=== PATIENT | female | born 1955 | race Caucasian/White ===

== ENCOUNTER 2018-01-17 20:20 | Inpatient (IN) | payer MEDICAID ==
[2018-01-17] MEDS ORDERED: MORPHINE SULFATE 4 MG/ML SYRINGE IV PRN (22:44)
[2018-01-17] MEDS ORDERED: ALPRAZolam 0.25 MG TAB PO PRN (22:44)
[2018-01-17] MEDS ORDERED: TEMAZEPAM 15 MG CAP PO PRN (22:44)
[2018-01-17] MEDS ORDERED: NALOXONE 0.4 MG/ML 1 ML VIAL IV PRN (22:44)
[2018-01-17] MEDS ORDERED: ALBUTEROL NEBULIZED 2.5 MG/3 ML INHALATION PRN (22:49)
[2018-01-17] MEDS ORDERED: FLUTICASONE 50MCG/SPRAY NASAL 16GM EA NOSTRIL PRN (22:49)
[2018-01-17] MEDS ORDERED: NITROGLYCERIN SL TABS 0.4 MG TAB SUBLINGUAL PRN (22:49)
[2018-01-17] MEDS ORDERED: ATORVASTATIN 40 MG TAB PO SCH (23:00)
[2018-01-17] MEDS ORDERED: HEPARIN SODIUM,PORCINE 5,000 UNIT/ML 1 ML VIAL IV PRN (23:00)
[2018-01-17] MEDS ORDERED: ATORVASTATIN 80 MG TAB PO SCH (23:00)
[2018-01-17] MEDS ORDERED: HEPARIN SODIUM,PORCINE/D5W PMX 25,000 UNIT in DEXTROSE/WATER 1 500ML.BAG IV SCH (23:00)
[2018-01-17 23:36] LABS: Basophils # (A) 0.1 k/uL (0-0.2); Basophils % (A) 1 %; Eosinophils # (A) 0.6 k/uL (0-0.7); Eosinophils % (A) 6 %; HCT 38.2 % (34.0-46.0); HGB 12.8 gm/dL (11.4-16.0); Lymphocytes % (A) 41 %; MCH 32.6 pg (25.0-35.0); MCHC 33.4 g/dL (31.0-37.0); MCV 97.8 fL (80.0-100.0); Mean Platelet Volume 7.7; Monocytes # (A) 0.6 k/uL (0-1.0); Monocytes % (A) 6 %; Neutrophils # (A) 4.4 k/uL (1.3-7.7); Neutrophils % (A) 45 %; Platelet Count 236 k/uL (150-450); RBC 3.91 m/uL (3.80-5.40); RDW 13.4 % (11.5-15.5); WBC 9.8 k/uL (3.8-10.6)
[2018-01-17 23:45] LABS: Partial Thromboplastin Time 43.1 sec (22.0-30.0); Prothrombin Time 10.2 sec (9.0-12.0)
[2018-01-17 23:48] LABS: ALT 29 U/L (9-52); AST 23 U/L (14-36); Alkaline Phosphatase 73 U/L (38-126); Amylase 67 U/L (30-110); Anion Gap 11 mmol/L; Blood Urea Nitrogen 18 mg/dL (7-17); Calcium 9.5 mg/dL (8.4-10.2); Carbon Dioxide 25 mmol/L (22-30); Chloride 107 mmol/L (98-107); Glucose 107 mg/dL (74-99); Lipase 206 U/L (23-300); Potassium 3.7 mmol/L (3.5-5.1); Sodium 143 mmol/L (137-145); Total Bilirubin 0.4 mg/dL (0.2-1.3); Total Protein 6.2 g/dL (6.3-8.2)
[2018-01-18] MEDS: NICOTINE 14MG/24HR PATCH TRANSDERM SCH ×2 (01:11→09:01)
[2018-01-18] MEDS: SODIUM CHLORIDE 0.9% 1,000 ML IV SCH ×2 (01:11→17:33)
[2018-01-18] MEDS: NITROGLYCERIN OINT 1 INCH/GM PACKET TOPICAL SCH ×2 (01:11→09:01)
[2018-01-18] MEDS: PANTOPRAZOLE 40 MG/10 ML VIAL IV SCH ×2 (01:12→09:00)
[2018-01-18] MEDS ORDERED: ACETAMINOPHEN TAB 325 MG TAB PO PRN (01:18)
[2018-01-18] MEDS: METOPROLOL TARTRATE 50 MG TAB PO SCH ×3 (01:19→21:41)
[2018-01-18 03:15] VITALS: BMI 25.4
--- NOTE | 2018-01-18 05:20 | HP ---
HISTORY AND PHYSICAL DATE OF SERVICE: 01/17/2018 CHIEF COMPLAINTS: Epigastric and chest pain. HISTORY OF PRESENT ILLNESS: This 59-year-old woman with a past medical history of myocardial infarction, history of DJD, history of bronchitis, adenoidectomy, being followed by in the outpatient setting was complaining of epigastric pain for the last several days. Subsequently patient had chest pain and pain radiating to the back and patient presented to [facility] in [place] and the patient started on IV heparin drip and nitroglycerin drip and the patient was transferred to [facility] as a direct admission at this time. In 2014 patient had acute [address] ST elevation myocardial infarction and patient had cardiac catheterization and stenting of the LAD with reduction of stenosis 80% to 0%. Patient also had epigastric discomfort during that time and hypodense areas in the pancreas on the ultrasound with normal CT scan was also noted. There is no history of any fever, rigors. No history of headache, loss of consciousness or seizures. PAST MEDICAL HISTORY: Myocardial infarction, CAD, stent. COPD, DJD, history of adenoidectomy, back surgery. MEDICATIONS: Prior to admission include home medications are: 1. Flonase nasal spray b.i.d. p.r.n. 2. Albuterol 1-2 puffs q.6h p.r.n. 3. Aspirin 320 mg daily. 4. Nitro 0.7 mg sublingual p.r.n. 5. Lopressor 50 mg b.i.d. 6. Zestril 5 mg. 7. Lipitor 40 mg. ALLERGIES: None. FAMILY HISTORY: History of coronary artery disease and bypass and AICD in the family. SOCIAL HISTORY: Occasional alcohol intake. Previous history of smoking. REVIEW OF SYSTEMS: ENT: No diminished vision, no diminished hearing. Cardiovascular as mentioned earlier. Respiratory: No cough or hemoptysis. GI as mentioned earlier. no dysuria. Nervous system: No numbness, weakness. Allergy/Immunology: No asthma or hayfever. Musculoskeletal as mentioned earlier. Hematology: No history of anemia. Endocrine: No history of diabetes, hypothyroidism. Constitutional: As mentioned earlier. Dermatology: Negative. Rheumatology: Negative. Psychiatry: As mentioned earlier. PHYSICAL EXAM: Patient is alert, oriented x3. Pulse is 80, blood pressure 120/90 respiratory rate 20, temp is normal. HEENT: Conjunctivae normal. Oral mucosa moist. Neck is no jugular venous distention. No carotid bruit. No lymph node enlargement. No thyroid enlargement. Cardiovascular system: S1, S2 muffled. Breath sounds diminished in the bases. No rhonchi. No crackles. ABDOMEN: Soft. Mild discomfort in the epigastrium. No guarding. No rigidity. No mass palpable. Legs: No edema. No swelling. Nervous system: Higher functions as mentioned earlier. Moves all four limbs. No focal deficits. Lymphatics: No lymph nodes palpable in the neck, axillae or groin. SKIN: No ulcer, rash, or bleeding. Joints no active deforming arthropathy. LABS: Awaited. ASSESSMENT: 1. Chest pain and back pain, possible unstable angina. 2. History of coronary artery disease and cardiac cath LAD stenting. 3. History of hyperlipidemia. 4. Chronic obstructive pulmonary disease. 5. History of nicotine dependence. 6. Degenerative joint disease. 7. History of bronchitis. 8. History of back surgery. 10.History of family history of coronary artery disease. RECOMMENDATIONS AND DISCUSSION: In this 62-year-old woman who presented with multiple complex medical issues, we will monitor the patient closely. Continue the current medications, management and symptomatic treatment. Will initiate unstable angina protocol, acute coronary syndrome protocol. Cardiology consultation. Rule out myocardial infarction. Resume the home medications. Otherwise symptomatic treatment also will be provided. Prognosis guarded because of multiple complex medical issues. Smoking cessation advice has been given. Discussed with the patient, understands and agrees. A copy of dictation being forwarded to Dr. Belia Griffin who is the primary physician. MMRICKL / TROYN: [id number] / MTDD
[2018-01-18 06:29] LABS: Basophils # (A) 0.1 k/uL (0-0.2); Basophils % (A) 1 %; Eosinophils # (A) 0.6 k/uL (0-0.7); Eosinophils % (A) 7 %; HCT 38.3 % (34.0-46.0); HGB 13.3 gm/dL (11.4-16.0); Lymphocytes # (A) 3.4 k/uL (1.0-4.8); Lymphocytes % (A) 37 %; MCHC 34.7 g/dL (31.0-37.0); MCV 95.2 fL (80.0-100.0); Mean Platelet Volume 7.3; Monocytes # (A) 0.6 k/uL (0-1.0); Monocytes % (A) 6 %; Neutrophils # (A) 4.4 k/uL (1.3-7.7); Neutrophils % (A) 47 %; Platelet Count 234 k/uL (150-450); RBC 4.02 m/uL (3.80-5.40); RDW 13.4 % (11.5-15.5); WBC 9.2 k/uL (3.8-10.6)
[2018-01-18 06:39] LABS: Anion Gap 11 mmol/L; Blood Urea Nitrogen 18 mg/dL (7-17); Calcium 9.3 mg/dL (8.4-10.2); Carbon Dioxide 23 mmol/L (22-30); Chloride 109 mmol/L (98-107); Cholesterol 143 mg/dL (<200); Glucose 88 mg/dL (74-99); HDL Cholesterol 75 mg/dL (40-60); LDL Cholesterol,Calculated 53 mg/dL (0-99); Potassium 3.9 mmol/L (3.5-5.1); Sodium 143 mmol/L (137-145); Triglycerides 77 mg/dL (<150)
[2018-01-18] MEDS ORDERED: ASPIRIN 325 MG TAB PO SCH (09:00)
[2018-01-18] MEDS ORDERED: NITROGLYCERIN-D5W PMX 50 MG in DEXTROSE/WATER 1 250ML.BAG IV SCH (09:45)
--- NOTE | 2018-01-18 09:48 | P.CRDCN ---
History of Present Illness Consult date: 01/18/18 Requesting physician: Jordy Ocasio Consult reason: chest pain Chief complaint: Chest pain History of present illness: This is a 62-year-old female with known history of coronary artery disease with prior LAD stent, she also has history of hypertension, hyperlipidemia, daily alcohol use of at least 3 beers a day, and nicotine dependence. Stent was performed in 2014, she follows with Dr. Cordova in the office. Patient was transferred here from [facility], she presented there with some's of midepigastric discomfort radiating through to her back. Initial EKG on arrival here shows a normal sinus rhythm with ST-T wave changes noted in the inferior and anterior leads. Laboratory data performed at [facility] was reviewed, the BNP was 219, troponin 0.017. White blood cell count 11.8, hemoglobin 13.1, platelet count 231. Sodium 141, potassium 3.6, BUN 19, creatinine 0.8. Magnesium 2.0. Laboratory data here, CBC is normal, sodium 143 , potassium 3.9, BUN 18, creatinine 0.6. Troponin 0.015, 0.020. At the time of my examination this morning, patient is complaining of some midepigastric discomfort, she does state that it reminds her of the symptoms she had at the time of her stenting. EKG was performed which reveals a normal sinus rhythm with ST-T wave changes more pronounced in the inferior leads. Past Medical History Past Medical History: Coronary Artery Disease (CAD), Chest Pain / Angina, COPD, Hyperlipidemia, Hypertension, Osteoarthritis (OA) Additional Past Medical History / Comment(s): bronchitis History of Any Multi-Drug Resistant Organisms: None Reported Past Surgical History: Adenoidectomy, Back Surgery, Heart Catheterization With Stent, Tonsillectomy Additional Past Surgical History / Comment(s): colonocsopy removed 1 polyp- benign,herniated disc sx Past Anesthesia/Blood Transfusion Reactions: Motion Sickness Date of Last Stent Placement:: 2014 Past Psychological History: No Psychological Hx Reported Smoking Status: Current some day smoker Past Alcohol Use History: Occasional Additional Past Alcohol Use History / Comment(s): started smoking at age 18 smoked until age 41, and still occassionally smokes,drinks 5-6 beers per week Past Drug Use History: None Reported - Past Family History Father Family Medical History: Coronary Artery Disease (CAD) Additional Family Medical History / Comment(s): 5 bypass sx pacer/defib Mother Family Medical History: COPD Additional Family Medical History / Comment(s): hs emphysema- 19 yeras ago from pneumonia Medications and Allergies Home Medications Medication Instructions Recorded Confirmed Type Aspirin 325 mg PO DAILY #90 tab 10/11/14 01/18/18 Rx Metoprolol Tartrate [Lopressor] 50 mg PO BID #180 tab 10/11/14 01/18/18 Rx Nitroglycerin Sl Tabs [Nitrostat] 0.4 mg SUBLINGUAL Q5M PRN #25 tab 10/11/14 Rx Albuterol Inhaler [Ventolin Hfa 1 - 2 puff INHALATION RT-Q4H PRN 01/17/18 History Inhaler] Fluticasone Nasal [place] [Flonase 1 spray EA NOSTRIL BID PRN 01/17/18 01/18/18 History Nasal [place]] Lisinopril [Zestril] 10 mg PO DAILY 01/17/18 01/18/18 History Atorvastatin Calcium [Lipitor] 40 mg PO HS 01/18/18 01/18/18 History Allergies Allergy/AdvReac Type Severity Reaction Status Date / Time No Known Allergies Allergy Verified 01/18/18 08:11 Physical Exam Vitals: Vital Signs Temp Pulse Resp BP Pulse Ox 01/18/18 09:03 97.8 F 67 16 132/68 99 01/18/18 06:25 98.5 F 65 18 128/62 96 01/18/18 02:15 98.1 F 59 L 17 135/58 97 01/17/18 21:50 98.4 F 65 18 119/64 96 Intake and Output 01/17/18 01/18/18 01/18/18 22:59 06:59 14:59 Intake Total 845.786 0 Balance 845.786 0 Intake: Intake, IV Titration 605.786 Amount Heparin Sodium,Porcine/ 205.786 D5w Pmx 25,000 unit In Dextrose/Water 1 500ml. bag @ 12 UNITS/KG/HR 16. 17 mls/hr IV .Q24H [facility] Rx #:[id number] Sodium Chloride 0.9% 1, 400 000 ml @ 50 mls/hr IV . Q20H [facility] Rx#:[id number] Oral 240 0 Other: Voiding Method Toilet Toilet # Voids 3 Weight 67.4 kg 67.4 kg PHYSICAL EXAMINATION: HEENT: Head is atraumatic, normocephalic. Pupils equal, round. Neck is supple. There is no elevated jugular venous pressure. HEART EXAMINATION: Heart S1 and S2 systolic ejection murmur is heard. CHEST EXAMINATION: Lungs are clear to auscultation and precussion. No chest wall tenderness is noted on palpation or with deep breathing. ABDOMEN: Soft, nontender. Bowel sounds are heard. No organomegaly noted. EXTREMITIES: 2+ peripheral pulses with no evidence of peripheral edema and no calf tenderness noted. NEUROLOGIC patient is awake, alert and oriented -3. . Results 01/18/18 06:06 01/18/18 06:06 Cardiac Enzymes 01/17/18 01/17/18 01/18/18 Range/Units 23:02 23:02 06:06 AST 23 (14-36) U/L Troponin I 0.015 0.020 (0.000-0.034) ng/mL Coagulation 01/17/18 01/18/18 Range/Units 23:02 06:06 PT 10.2 (9.0-12.0) sec APTT 43.1 H 40.2 H (22.0-30.0) sec Lipids 01/18/18 Range/Units 06:06 Triglycerides 77 (<150) mg/dL Cholesterol 143 (<200) mg/dL HDL Cholesterol 75 H (40-60) mg/dL CBC 01/17/18 01/18/18 Range/Units 23:02 06:06 WBC 9.8 9.2 (3.8-10.6) k/uL RBC 3.91 4.02 (3.80-5.40) m/uL Hgb 12.8 13.3 (11.4-16.0) gm/dL Hct 38.2 38.3 (34.0-46.0) % Plt Count 236 234 (150-450) k/uL Comprehensive Metabolic Panel 01/17/18 01/18/18 Range/Units 23:02 06:06 Sodium 143 143 (137-145) mmol/L Potassium 3.7 3.9 (3.5-5.1) mmol/L Chloride 107 109 H (98-107) mmol/L Carbon Dioxide 25 23 (22-30) mmol/L BUN 18 H 18 H (7-17) mg/dL Creatinine 0.80 0.62 (0.52-1.04) mg/dL Glucose 107 H 88 (74-99) mg/dL Calcium 9.5 9.3 (8.4-10.2) mg/dL AST 23 (14-36) U/L ALT 29 (9-52) U/L Alkaline Phosphatase 73 (38-126) U/L Total Protein 6.2 L (6.3-8.2) g/dL Albumin 4.0 (3.5-5.0) g/dL Current Medications Generic Name Dose Route Start Last Admin Trade Name Freq PRN Reason Stop Dose Admin Acetaminophen 650 mg 01/18/18 01:18 01/18/18 01:26 Tylenol Tab PO 650 mg Q6HR PRN Administration Fever and/ or Pain Hydrocodone Bitart/Acetaminophen 1 each 01/17/18 22:44 [place] 5-325 PO Q4HR PRN Moderate Pain Albuterol Sulfate 2.5 mg 01/17/18 22:49 Ventolin Nebulized INHALATION RT-Q4H PRN Shortness Of Breath Or Wheezing Alprazolam 0.25 mg 01/17/18 22:44 Xanax PO Q6HR PRN Anxiety Aspirin 325 mg 01/18/18 09:00 Aspirin PO DAILY [facility] Atorvastatin Calcium 40 mg 01/17/18 23:00 Lipitor PO HS TETE Fluticasone Propionate 1 spray 01/17/18 22:49 01/18/18 01:12 Flonase Nasal [place] EA NOSTRIL 1 spray BID PRN Administration Allergy Symptoms Heparin Sodium (Porcine) 5,000 unit 01/17/18 23:00 Heparin IV PER PROTOCOL PRN Low PTT Protocol Heparin Sodium/Dextrose 25,000 500 mls @ 16.17 mls/hr 01/17/18 23:00 06:59 unit/ IV Solution IV 15 units/kg/hr .Q24H TETE 20.22 mls/hr Protocol Titration 12 UNITS/KG/HR Sodium Chloride 1,000 mls @ 50 mls/hr 01/17/18 22:45 01/18/18 01:11 Saline 0.9% IV 50 mls/hr .Q20H TETE Administration Lisinopril 5 mg 01/18/18 09:00 Zestril PO DAILY [facility] Metoprolol Tartrate 50 mg 01/17/18 23:00 01/18/18 01:19 Lopressor PO Not Given BID [facility] Morphine Sulfate 4 mg 01/17/18 22:44 Morphine Sulfate (Inj) IV Q4HR PRN Severe Pain Naloxone HCl 0.2 mg 01/17/18 22:44 Narcan IV Q2M PRN Opioid Reversal Nicotine 1 patch 01/17/18 23:30 01/18/18 09:01 Habitrol 14mg/24hr Patch TRANSDERM 1 patch DAILY [facility] Administration Nitroglycerin 0.5 inch 01/18/18 00:00 01/18/18 09:01 Nitro-Bid Oint TOPICAL 0.5 inch Q8HR [facility] Administration Nitroglycerin 0.4 mg 01/17/18 22:49 Nitrostat SUBLINGUAL Q5M PRN Chest Pain Pantoprazole Sodium 40 mg 01/17/18 23:30 01/18/18 09:00 Protonix IV 40 mg DAILY [facility] Administration Temazepam 15 mg 01/17/18 22:44 Restoril PO HS PRN Insomnia Intake and Output 01/17/18 01/18/18 01/18/18 22:59 06:59 14:59 Intake Total 845.786 0 Balance 845.786 0 Intake: Intake, IV Titration 605.786 Amount Heparin Sodium,Porcine/ 205.786 D5w Pmx 25,000 unit In Dextrose/Water 1 500ml. bag @ 12 UNITS/KG/HR 16. 17 mls/hr IV .Q24H [facility] Rx #:[id number] Sodium Chloride 0.9% 1, 400 000 ml @ 50 mls/hr IV . Q20H [facility] Rx#:[id number] Oral 240 0 Other: Voiding Method Toilet Toilet # Voids 3 Weight 67.4 kg 67.4 kg 01/18/18 06:06 01/18/18 06:06 EKG Interpretations (text) EKG shows normal sinus rhythm with ST-T wave changes noted in the inferior leads and anterior leads. Subsequent EKG shows normal sinus rhythm with poor pronounced changes noted in the inferior leads. Assessment and Plan Plan: Assessment and plan #1 symptoms of epigastric discomfort radiating through to the back, suggestive of acute coronary syndrome. Initial troponin 0.015, subsequent troponin 0.020. EKG shows normal sinus rhythm with ST-T wave changes noted in the inferior and anterior leads. #2 known history of coronary artery disease with prior LAD stent in 2014, patient was found to have proximal PDA stenosis of 70% at that time as well. #3 hyperlipidemia #4 nicotine dependence #5 hypertension #6 nicotine dependence Plan We will obtain an echocardiogram with Doppler study, continue IV heparin. Continue IV nitroglycerin drip, aspirin, Lipitor, lisinopril, and metoprolol. Patient has been advised that she may need to undergo cardiac catheterization, the risks and benefits again were explained to the patient in detail, and she is willing to proceed. DNP note has been reviewed, I agree with a documented findings and plan of care. Patient was seen and examined.
[2018-01-18] MEDS ORDERED: ASPIRIN 325 MG TAB PO STA (09:49)
[2018-01-18] MEDS ORDERED: SODIUM CHLORIDE 0.9% 1,000 ML in EMPTY BAG 1 BAG IV ONE (09:49)
[2018-01-18] MEDS ORDERED: ALPRAZolam 0.25 MG TAB PO PRN (09:49)
[2018-01-18] MEDS ORDERED: ALPRAZolam 0.5 MG TAB PO PRN (09:49)
[2018-01-18] MEDS ORDERED: ATORVASTATIN 80 MG TAB PO STA (09:49)
[2018-01-18] MEDS ORDERED: NITROGLYCERIN SL TABS 0.4 MG TAB SUBLINGUAL PRN (09:49)
[2018-01-18] MEDS ORDERED: LIDOCAINE 2% INJ 20 MG/ML (20 ML MDV) ONE (09:58)
[2018-01-18] MEDS ORDERED: fentaNYL (PF) 50 MCG/ML 2 ML AMP ONE (10:08)
[2018-01-18] MEDS ORDERED: IV FLUID CONTINUATION 1,000 ML IV ONE (10:15)
[2018-01-18] MEDS ORDERED: fentaNYL (PF) 50 MCG/ML 2 ML AMP IV ONE (10:27)
[2018-01-18] MEDS ORDERED: LIDOCAINE 2% INJ 20 MG/ML SQ ONE (10:32)
[2018-01-18] MEDS ORDERED: IOHEXOL 350 MG/ML 125ML BOTTLE INJ ONE (10:52)
[2018-01-18] MEDS ORDERED: IOHEXOL 350 MG/ML 50ML BOTTLE INJ ONE (10:52)
[2018-01-18] MEDS ORDERED: RX INFO: IV CONTRAST WAS GIVEN 1 EACH MISC MISCELLANE PRN (11:00)
[2018-01-18] MEDS ORDERED: SODIUM CHLORIDE 0.9% 1,000 ML IV SCH (11:00)
--- NOTE | 2018-01-18 11:33 | CC ---
CARDIAC CATHETERIZATION REPORT Mrs. Arriaza is a 62-year-old female who transferred medications from [facility] with symptoms of chest discomfort. She had borderline EKG changes. In view of the persistent symptoms and her prior history of coronary disease and stenting of the LAD, recommendation was made regarding cardiac catheterization. The procedure, risks and complications were discussed with the patient who is in full understanding and agreement. PROCEDURE: Patient was brought to the Cardiac Breaker Up in a fasting semi-sedated state after receiving fentanyl and Benadryl and achieving moderate conscious sedated state. Using Xylocaine anesthesia and the Seldinger technique, a 6-Ivorian sheath was introduced in the right femoral artery. Selective right and left angiography performed using 5- [place]vor[place] 4 bend right and left Miranda catheter and multiple views of the right coronary artery including hemiaxial vies obtained. Following that a 6-Ivorian tight pigtail catheter was introduced into the left ventricle and a 30 degree AGUAYO view of the left ventricle was obtained. Following that, catheter and sheaths were removed. Hemostasis was obtained with deployment of an Angio-Seal. There was no immediate complication. Patient was returned to her room in stable condition. FINDINGS: 1. LEFT MAIN: This is a short-sized vessel bifurcating into left circumflex, left anterior descending artery. Left main coronary artery has no evidence of high- grade stenosis. 2. LEFT ANTERIOR DESCENDING ARTERY: This is a large-sized vessel, reaching toward the apex with a wraparound apex segment. The mid segment stented areas is patent. There is 10% plaque proximal to the stent, but the rest of the vessel has no high-grade stenosis. 3. LEFT CIRCUMFLEX: This is a nondominant vessel, giving rise to 2 obtuse marginal branches. The first one is very proximal and large. The left circumflex as well as branches have no evidence of obstructive disease. 4. RIGHT CORONARY ARTERY: This is a large dominant vessel, bifurcating distally into PDA and posterolateral segments and branches. The right PDA has mild intimal disease of 10%. In comparison to 2015, the PDA and PLV had significant plaque that are no longer noted. 5. LEFT VENTRICULOGRAM: Left ventriculogram is performed in 30 degree AGUAYO view and inferior wall hypokinesis to akinesis. Ejection fraction is estimated at 45%-50%. There was no significant mitral regurgitation. HEMODYNAMICS: There was no gradient across the aortic valve. The left ventricular end-diastolic pressure was 16-20 mmHg. CONCLUSION: 1. Mild intimal disease involving the right PDA and the mid left and descending artery with no evidence of restenosis. 2. Mildly impaired left ventricular systolic function. RECOMMENDATION: In view of finding anatomy, I have recommended to continue medical therapy with aggressive risk-factor modifications being initiated. Those findings and recommendation were discussed with the patient and she is in full understanding and agreement. MMRICKL / AURELIA: [id number] /
[2018-01-18] MEDS: LISINOPRIL 5 MG TAB PO SCH (11:37)
[2018-01-18] MEDS: HYDROcodone/APAP 5-325MG 1 EACH TAB PO PRN ×3 (11:40→21:41)
[2018-01-18 12:22] VITALS: RESP 16
[2018-01-18] MEDS: IOPAMIDOL-300 CONTRAST 30 ML VIAL (ORAL USE) PO PRN ×2 (19:50→20:20)
[2018-01-18] MEDS ORDERED: IOPAMIDOL-250 50ML BTL IV STA (20:03)
--- NOTE | 2018-01-18 20:15 | US ---
EXAMINATION TYPE: US gallbladder DATE OF EXAM: 01/18/2018 COMPARISON: Ultrasound 10/10/2014 CLINICAL HISTORY: cholecystitis??. RUQ pain EXAM MEASUREMENTS: Liver Length: 15 cm. Gallbladder Wall: 2 mm CBD: 0.8 cm Right Kidney: 9.0 x 4.2 x 4.7 cm Pancreas: Hypoechoic area at head measuring 8 x 4 mm in axial cross-section, seen on previous exam, likely peripancreatic node. Liver: wnl Gallbladder: Negative for cholelithiasis and negative for cholecystitis. Evidence for sonographic Canas's sign: No CBD: Dilated at 8 mm, similar caliber as seen on the prior ultrasound. Right Kidney: wnl IMPRESSION: NO ACUTE PROCESS; STABLE SONOGRAPHIC FINDINGS.
--- NOTE | 2018-01-18 20:19 | XR ---
EXAMINATION: XR chest 1V portable DATE AND TIME: 01/18/2018 7:03 PM ORDERING PROVIDER: Justin Stoll CLINICAL INDICATION: chest pain TECHNIQUE: AP portable upright COMPARISON: 10/07/2014 DESCRIPTION: The lungs are clear. Prominent emphysematous changes are redemonstrated. The pleural spaces are negative. The cardiac silhouette is not enlarged. The mediastinal and pleural silhouettes are unremarkable. The skeletal structures are intact without focal findings. The soft tissues are unremarkable. IMPRESSION: NO ACUTE PROCESS.
--- NOTE | 2018-01-18 22:18 | CT ---
EXAMINATION TYPE: CT ChestAbdPelvis wo con DATE OF EXAM: 01/18/2018 COMPARISON: October 09, 2014 HISTORY: Epigastric and back pain. CT DLP: 437.2 mGycm. Automated Exposure Control for Dose Reduction was Utilized. TECHNIQUE: CT scan of the thorax, abdomen and pelvis is performed without IV contrast. FINDINGS: There is diffuse pulmonary emphysema. There is no evidence of a pulmonary mass. There is mild linear density at the lung bases consistent with scarring and subsegmental atelectasis. There is no pleural effusion. There is no pericardial effusion. There are a few paratracheal and anterior mediastinal lym ph nodes that measure up to 1.5 cm. There is no evidence of aortic aneurysm. There is no pericardial effusion. There are no hilar masses. Liver shows no focal defect. Bile ducts are not dilated. Gallbladder appears normal. There is no panc reatic mass. There is no evidence of a splenic mass. There is no adrenal mass. There is some vascular contrast in the renal collecting systems. There is no hydronephrosis. There is no retroperitoneal adenopathy. There is no sign of appendicitis. I see no intestinal wall thickening. There are no dilated loops. There is contrast in the urinary bl adder. There is no ascites. Uterus is anteverted. I see no bony destructive process. There is L5 spon dylolysis with minimal first-degree L5-S1 spondylolisthesis. CONCLUSION: Emphysema. Mild atherosclerotic vascular disease. There is contrast in the kidneys apparently from r ecent contrast exam. This is not documented and patient probably had exam elsewhere. No evidence of r enal obstruction. There is some nodular anterior mediastinal and paratracheal adenopathy that is unchanged compared to old exam. No sign of acute abnormality of the chest abdomen and pelvis.
--- NOTE | 2018-01-19 06:03 | PN ---
PROGRESS NOTE DATE OF SERVICE: 01/18/2018 This 62-year-old woman who had a past medical history of multiple medical problems including CAD, stenting had chest pain. Cardiac cath was done by Cardiology today which showed mild intimal disease involving the right PDA with no evidence of stent restenosis. The patient also had a previously abnormal CAT scan, which has been worked up previously. Repeat CAT scan done today showed emphysema, otherwise no other acute abnormalities noted. A gallbladder ultrasound was also done, which showed no acute process. No chest pain. No palpitations. No fever. PHYSICAL EXAMINATION: On exam, alert, and oriented x3. Pulse is 60, blood pressure 122/60, respirations 16, temperature 97.7, pulse ox 94% on room air. HEENT: Conjunctivae normal. NECK: No jugular venous distention. CARDIOVASCULAR: S1 and S2 muffled. RESPIRATORY: Breath sounds diminished in the bases. No rhonchi, no crackles. ABDOMEN: Soft, nontender. LEGS: No edema, no swelling. NERVOUS SYSTEM: No focal deficits. LABS: CBC within normal limits. ASSESSMENT: 1. Chest pain and back pain, possible unstable angina, status post cardiac catheterization. 2. History of coronary artery disease and cardiac cath and left anterior descending artery stenting. 3. History of hyperlipidemia. 4. Chronic obstructive pulmonary disease. 5. History of nicotine dependence. 6. History of degenerative joint disease. 7. History of bronchitis. 8. History of back surgery. 9. Family history of coronary artery disease. RECOMMENDATIONS AND DISCUSSION: Recommend to continue current medication, continue symptomatic treatment. Closely follow with Cardiology. Increase ambulation. Guarded prognosis. Further recommendations to follow. MMODL / IJN: [id number] /
[2018-01-19 06:51] LABS: Basophils # (A) 0.1 k/uL (0-0.2); Basophils % (A) 1 %; Eosinophils # (A) 0.4 k/uL (0-0.7); Eosinophils % (A) 5 %; HCT 40.8 % (34.0-46.0); HGB 13.5 gm/dL (11.4-16.0); Lymphocytes # (A) 3.2 k/uL (1.0-4.8); Lymphocytes % (A) 36 %; MCH 33.1 pg (25.0-35.0); MCHC 33.2 g/dL (31.0-37.0); MCV 99.8 fL (80.0-100.0); Mean Platelet Volume 7.4; Monocytes # (A) 0.5 k/uL (0-1.0); Monocytes % (A) 6 %; Neutrophils # (A) 4.3 k/uL (1.3-7.7); Neutrophils % (A) 49 %; Platelet Count 223 k/uL (150-450); RBC 4.09 m/uL (3.80-5.40); RDW 13.5 % (11.5-15.5); WBC 8.7 k/uL (3.8-10.6)
[2018-01-19 07:03] LABS: Anion Gap 11 mmol/L; Blood Urea Nitrogen 11 mg/dL (7-17); Calcium 9.7 mg/dL (8.4-10.2); Carbon Dioxide 24 mmol/L (22-30); Chloride 109 mmol/L (98-107); Glucose 87 mg/dL (74-99); Potassium 4.2 mmol/L (3.5-5.1); Sodium 144 mmol/L (137-145)
[2018-01-19] MEDS ORDERED: PANTOPRAZOLE 40 MG TABLET PO SCH (07:30)
[2018-01-19] MEDS: LISINOPRIL 5 MG TAB PO SCH (08:26)
[2018-01-19] MEDS: METOPROLOL TARTRATE 50 MG TAB PO SCH (08:26)
[2018-01-19] MEDS: NICOTINE 14MG/24HR PATCH TRANSDERM SCH (08:26)
[2018-01-19 08:43] VITALS: TEMP 97
[2018-01-19] MEDS ORDERED: ASPIRIN 81 MG PO SCH (09:00)
--- NOTE | 2018-01-19 09:47 | ECHOF ---
Referral Reason:chest pain MEASUREMENTS -------- HEIGHT: 162.6 cm WEIGHT: 67.1 kg BP: 132/68 IVSd: 0.9 cm (0.6 - 1.1) LVIDd: 4.7 cm (3.9 - 5.3) LVPWd: 1.2 cm (0.6 - 1.1) IVSs: 1.7 cm LVIDs: 3.6 cm LVPWs: 1.5 cm LAESV Index (A-L): 20.21 ml/m Ao Diam: 3.1 cm (2.0 - 3.7) AV Cusp: 1.7 cm (1.5 - 2.6) LA Diam: 2.5 cm (2.7 - 3.8) MV EXCURSION: 20.954 mm (> 18.000) MV EF SLOPE: 59 mm/s (70 - 150) EPSS: 0.9 cm MV E Sadi: 0.73 m/s MV DecT: 171 ms MV A Sadi: 0.75 m/s MV E/A Ratio: 0.98 RAP: 5.00 mmHg RVSP: 8.46 mmHg FINDINGS -------- Sinus rhythm. This was a technically good study. The left ventricular size is normal. There is borderline concentric left ventricular hypertrophy. Overall left ventricular systolic function is mildly impaired with, an EF between 45 - 50 %. Basal inferior LV wall motion is hypokinetic. Mid inferior LV wall motion is hypokinetic. The right ventricle is normal in size and function. The left atrium is normal in size. The right atrium is normal in size. The aortic valve is trileaflet, and appears structurally normal. No aortic stenosis or regurgitation. The mitral valve is normal. Mild mitral regurgitation is present. Mild tricuspid regurgitation present. The right ventricular systolic pressure, as measured by Doppl er, is 8.46mmHg. There is no pulmonic regurgitation present. The aortic root size is normal. There is no pericardial effusion. CONCLUSIONS -------- 1. Sinus rhythm. 2. This was a technically good study. 3. The left ventricular size is normal. 4. There is borderline concentric left ventricular hypertrophy. 5. Overall left ventricular systolic function is mildly impaired with, an EF between 45 - 50 %. 6. Basal inferior LV wall motion is hypokinetic. 7. Mid inferior LV wall motion is hypokinetic. 8. The left atrium is normal in size. 9. The aortic valve is trileaflet, and appears structurally normal. No aortic stenosis or regurgitati on. 10. Mild mitral regurgitation is present. 11. Mild tricuspid regurgitation present. 12. The right ventricular systolic pressure, as measured by Doppler, is 8.46mmHg. 13. There is no pulmonic regurgitation present. 14. The aortic root size is normal. 15. There is no pericardial effusion. LOG HAUL OPERATOR: Jessica Walton RDCS
[2018-01-19 11:18] VITALS: BP 130/66; PULSE 56
--- NOTE | 2018-01-19 12:18 | P.PN ---
Subjective Progress Note Date: 01/19/18 Principal diagnosis: Epigastric pain This is a 62-year-old female with known history of coronary artery disease with prior LAD stent, she also has history of hypertension, hyperlipidemia, daily alcohol use of at least 3 beers a day, and nicotine dependence. Stent was performed in 2014, she follows with Dr. Cordova in the office. Patient was transferred here from [facility] [place], she presented there with some's of midepigastric discomfort radiating through to her back. Initial EKG on arrival here shows a normal sinus rhythm with ST-T wave changes noted in the inferior and anterior leads. Laboratory data performed at [place] was reviewed, the BNP was 219, troponin 0.017. White blood cell count 11.8, hemoglobin 13.1, platelet count 231. Sodium 141, potassium 3.6, BUN 19, creatinine 0.8. Magnesium 2.0. Laboratory data here, CBC is normal, sodium 143 , potassium 3.9, BUN 18, creatinine 0.6. Troponin 0.015, 0.020. At the time of my examination this morning, patient is complaining of some midepigastric discomfort, she does state that it reminds her of the symptoms she had at the time of her stenting. EKG was performed which reveals a normal sinus rhythm with ST-T wave changes more pronounced in the inferior leads. 01/19/2018 Patient underwent a cardiac catheterization yesterday by Dr. Cordova which revealed mild intimal disease involving the right PDA and the mid LAD with no evidence of restenosis. Mildly impaired left ventricular systolic function. CAT scan of the chest abdomen and pelvis revealed diffuse pulmonary emphysema, no evidence of pulmonary mass, possible atelectasis. No pleural effusion, no pericardial effusion, there are a few paratracheal and anterior mediastinal lymph nodes measuring up to 1.5 cm, no evidence of aortic aneurysm, and no pericardial effusion. Patient is hemodynamically stable. CBC normal, sodium 144, potassium 4.2, BUN 11, creatinine 0.5. Objective - Vital Signs Vital signs: Vital Signs Temp 97 F L 01/19/18 11:15 Pulse 56 L 01/19/18 11:15 Resp 16 01/19/18 11:15 BP 130/66 01/19/18 11:15 Pulse Ox 96 01/19/18 11:15 Intake & Output 01/18/18 01/19/18 01/19/18 18:59 06:59 18:59 Intake Total 555.47 410 Output Total 1 Balance 555.47 409 Weight 67 kg Intake: IV 75.47 Intake, IV Titration 10 Amount Sodium Chloride 0.9% 1, 10 000 ml @ 100 mls/hr IV . Q10H [facility] Rx#:[id number] Oral 480 400 Output: Urine 1 Other: Voiding Method Toilet Toilet Toilet # Voids 2 - Exam PHYSICAL EXAMINATION: HEENT: Head is atraumatic, normocephalic. Pupils equal, round. Neck is supple. There is no elevated jugular venous pressure. HEART EXAMINATION: Heart S1, S2 normal. No murmur or gallop heard. CHEST EXAMINATION: Lungs are clear to auscultation and precussion. No chest wall tenderness is noted on palpation or with deep breathing. ABDOMEN: Soft, nontender. Bowel sounds are heard. No organomegaly noted. Right groin soft, no evidence of any hematoma. EXTREMITIES: 2+ peripheral pulses with no evidence of peripheral edema and no calf tenderness noted. NEUROLOGIC patient is awake, alert and oriented -3. . - Labs CBC & Chem 7: 01/19/18 06:09 01/19/18 06:09 Labs: Abnormal Lab Results - Last 24 Hours (Table) 01/19/18 Range/Units 06:09 Chloride 109 H (98-107) mmol/L Assessment and Plan Plan: Assessment and plan #1 symptoms of epigastric discomfort radiating through to the back, suggestive of acute coronary syndrome. Initial troponin 0.015, subsequent troponin 0.020. EKG shows normal sinus rhythm with ST-T wave changes noted in the inferior and anterior leads. #2 known history of coronary artery disease with prior LAD stent in 2014, patient was found to have proximal PDA stenosis of 70% at that time as well. #3 hyperlipidemia #4 nicotine dependence #5 hypertension #6 nicotine dependence Plan Patient underwent a cardiac catheterization yesterday by Dr. Cordova which revealed mild intimal disease involving the right PDA and mid LAD with no evidence of restenosis. From cardiology's perspective, she may be able to be discharged home today. We will make her a follow-up appointment to see Dr. Cordova in the office post discharge. DNP note has been reviewed, I agree with a documented findings and plan of care. Patient was seen and examined.
--- NOTE | 2018-01-19 12:44 | P.DS ---
Providers Date of admission: 01/17/18 21:41 Attending physician: Jordy Ocasio MD Consults: 01/17/18 22:46 Consult Physician Routine Consulting Provider: Garth Kirkland Consult Reason/Comments: cad Do you want consulting provider notified?: Yes Primary care physician: Belia L [facility] Course: 62-year-old with known history of coronary disease primarily lady came in with epigastric abdominal discomfort patient underwent cardiac catheterization which did not show any stent table atherosclerotic vascular disease there is some mild intimal disease involving the right PDA and mild LAD disease without any evidence of restenosis. Patient is otherwise clinically doing well chest pain- free epigastric abdominal pain free patient had an ultrasound of the gallbladder which did not show any gallstones or cholecystitis. Patient will be discharged on Prilosec for 15 days for possible gastritis if her symptoms doesn't resolve will need evaluation by gastroenterology and upper GI endoscopy. PHYSICAL EXAMINATION: GENERAL: The patient is alert and oriented x3, not in any acute distress. Well developed, well nourished. HEENT: Pupils are round and equally reacting to light. EOMI. No scleral icterus. No conjunctival pallor. Normocephalic, atraumatic. No pharyngeal erythema. No thyromegaly. CARDIOVASCULAR: S1 and S2 present. No murmurs, rubs, or gallops. PULMONARY: Chest is clear to auscultation, no wheezing or crackles. ABDOMEN: Soft, nontender, nondistended, normoactive bowel sounds. No palpable organomegaly. MUSCULOSKELETAL: No joint swelling or deformity. EXTREMITIES: No cyanosis, clubbing, or pedal edema. NEUROLOGICAL: Gross neurological examination did not reveal any focal deficits. SKIN: No rashes. -Epigastric abdominal discomfort: Possibly due to peptic ulcer disease or gastritis -Rule out acute clinic syndromes underwent status post cardiac catheterization -Hyperlipidemia -" Nicotine dependence: Counseling was provided -Hypertension Plan - Discharge Summary Discharge Rx Participant: No New Discharge Prescriptions: New Aspirin 81 mg PO DAILY #30 chew Lisinopril [Zestril] 5 mg PO DAILY #30 tab Nicotine 14Mg/24Hr Patch [Habitrol] 1 patch TRANSDERM DAILY #30 patch Omeprazole [PriLOSEC] 40 mg PO -CLEOPATRAKFST #14 capsule. Continue Metoprolol Tartrate [Lopressor] 50 mg PO BID #180 tab Nitroglycerin Sl Tabs [Nitrostat] 0.4 mg SUBLINGUAL Q5M PRN #25 tab PRN Reason: Chest Pain Atorvastatin Calcium [Lipitor] 40 mg PO HS Discontinued Aspirin 325 mg PO DAILY #90 tab Lisinopril [Zestril] 10 mg PO DAILY No Action Albuterol Inhaler [Ventolin Hfa Inhaler] 1 - 2 puff INHALATION RT-Q4H PRN PRN Reason: Shortness Of Breath Or Wheezing Fluticasone Nasal Hydro [Flonase Nasal Hydro] 1 spray EA NOSTRIL BID PRN PRN Reason: Allergy Symptoms Discharge Medication List Metoprolol Tartrate [Lopressor] 50 mg PO BID #180 tab 10/11/14 [Rx] Nitroglycerin Sl Tabs [Nitrostat] 0.4 mg SUBLINGUAL Q5M PRN #25 tab 10/11/14 [Rx ] Albuterol Inhaler [Ventolin Hfa Inhaler] 1 - 2 puff INHALATION RT-Q4H PRN [History] Fluticasone Nasal Hydro [Flonase Nasal Hydro] 1 spray EA NOSTRIL BID PRN [History] Atorvastatin Calcium [Lipitor] 40 mg PO HS 01/18/18 [History] Aspirin 81 mg PO DAILY #30 chew 01/19/18 [Rx] Lisinopril [Zestril] 5 mg PO DAILY #30 tab 01/19/18 [Rx] Nicotine 14Mg/24Hr Patch [Habitrol] 1 patch TRANSDERM DAILY #30 patch 01/19/18 [ Rx] Omeprazole [PriLOSEC] 40 mg PO AC-CLEOPATRAKFST #14 capsule. 01/19/18 [Rx] Follow up Appointment(s)/Referral(s): Lillie Cordova MD [STAFF PHYSICIAN] - 02/04/18 10:30 am () Belia Griffin NPC [Primary Care Provider] - 01/21/18 1:00 pm Patient Instructions/Handouts: *Surgery [facility] - After Heart Catheterization - Induction Furnace Operator Instructions, Left Heart Catheterization (DC), How to Stop Smoking (DC) Discharge/Stand Alone Forms: Work/Release Restrictions Form Discharge Disposition: HOME SELF-CARE
== END 2018-01-19 13:02 | disposition home or self-care (01) | DRG 287 ==
LOC: 6SEL 21:41
PROVIDERS: ADMIT Internal Medicine; ATTEND Internal Medicine
PROC: 4A023N7 Measurement of Cardiac Sampling and Pressure, Left Heart, Percutaneous Approach (ICD-10-PCS; principal; 2018-01-17)
PROC: B2111ZZ Fluoroscopy of Multiple Coronary Arteries using Low Osmolar Contrast (ICD-10-PCS; 2018-01-17)
DX: I25.110 Atherosclerotic heart disease of native coronary artery with unstable angina pectoris (principal); E78.5 Hyperlipidemia, unspecified; F17.200 Nicotine dependence, unspecified, uncomplicated; K29.70 Gastritis, unspecified, without bleeding; K27.9 Peptic ulcer, site unspecified, unspecified as acute or chronic, without hemorrhage or perforation; I10 Essential (primary) hypertension; M19.90 Unspecified osteoarthritis, unspecified site; Z82.49 Family history of ischemic heart disease and other diseases of the circulatory system; Z95.5 Presence of coronary angioplasty implant and graft; Z76.1 Encounter for health supervision and care of foundling; I25.2 Old myocardial infarction; Z79.899 Other long term (current) drug therapy; Z79.82 Long term (current) use of aspirin; Z90.89 Acquired absence of other organs; Z82.5 Family history of asthma and other chronic lower respiratory diseases
CPT/HCPCS: 71045; 71250; 74176; 76705; 80048; 80053; 80061; 82150; 83690; 83735; 84484; 85025; 85610; 85730; 93306; 93458

== ENCOUNTER → 2021-11-11 | Outpatient (CLI) | payer MEDICARE ==
[2021-11-12 01:05] LABS: African American GFR (CKD) 81.4 (60.0-200.0); Albumin 4.6 g/dL (3.8-4.9); Albumin/Globulin Ratio 2.09 (1.60-3.17); Anion Gap 14.9 mmol/L (10.00-18.00); BUN/Creat Ratio 11.65 Ratio (12.00-20.00); Blood Urea Nitrogen 10.1 mg/dL (9.0-27.0); Calcium 10.1 mg/dL (8.7-10.3); Carbon Dioxide 23.4 mmol/L (20.0-27.5); Globulin 2.2 g/dL (1.6-3.3); Non-African American GFR(CKD) 70.2 (60.0-200.0); Potassium 4.4 mmol/L (3.5-5.5); Total Bilirubin 0.4 mg/dL (0.30-1.20); Total Protein 6.8 g/dL (6.2-8.2)
== END | disposition home or self-care (01) ==
LOC: LABWHC1 14:30
PROVIDERS: ATTEND Internal Medicine Endocrinology, Diabetes & Metabolism
DX: M81.0 Age-related osteoporosis without current pathological fracture (principal)
CPT/HCPCS: 36415; 80053; 82306; 82523; 83970; 84443

== ENCOUNTER 2025-01-05 05:43 | Day surgery (SDC) | payer MEDICARE ==
[2025-01-05] MEDS ORDERED: NITROGLYCERIN SL TABS 0.4 MG TAB SUBLINGUAL PRN (05:54)
[2025-01-05] MEDS ORDERED: ALPRAZolam 0.25 MG TAB PO PRN (05:54)
[2025-01-05] MEDS: IV FLUID CONTINUATION 1,000 ML IV ONE (06:15)
[2025-01-05] MEDS: ALPRAZolam 0.5 MG TAB PO PRN (06:38)
[2025-01-05] MEDS: SODIUM CHLORIDE 0.9% 1,000 ML in EMPTY BAG 1 BAG IV SCH (06:39)
[2025-01-05] MEDS: ASPIRIN 325 MG TAB PO STA (06:43)
[2025-01-05] MEDS: ATORVASTATIN 80 MG TAB PO STA (06:43)
[2025-01-05 06:54] VITALS: RESP 16; TEMP 97.6
[2025-01-05 06:56] LABS: Basophils # (A) 0.07 10*3/uL (0.00-0.10); Basophils % (A) 0.8 %; Eosinophils # (A) 0.31 10*3/uL (0.04-0.35); Eosinophils % (A) 3.7 %; HCT 37.7 % (37.2-46.3); HGB 13.1 g/dL (12.0-15.0); Lymphocytes # (A) 2.96 10*3/uL (0.90-5.00); Lymphocytes % (A) 35.4 %; MCHC 34.7 g/dL (32.0-37.0); MCV 103.6 fL (80.0-97.0); Mean Platelet Volume 10.1 fL (9.5-12.2); Monocytes # (A) 0.83 10*3/uL (0.20-1.00); Monocytes % (A) 9.9 %; Neutrophils # (A) 4.15 10*3/uL (1.80-7.70); Neutrophils % (A) 49.8 %; Platelet Count 166 10*3/uL (140-440); RBC 3.64 10*6/uL (4.10-5.20); RDW 14.5 % (11.5-14.5); WBC 8.35 10*3/uL (4.50-10.00)
[2025-01-05 06:59] LABS: African American GFR (CKD) >90 (>60 ml/min/1.73 sqM); Anion Gap 6 mmol/L; Blood Urea Nitrogen 14 mg/dL (7-17); Calcium 9.8 mg/dL (8.4-10.2); Carbon Dioxide 25 mmol/L (22-30); Chloride 108 mmol/L (98-107); Glucose 111 mg/dL (74-99); Non-African American GFR(CKD) >90 (>60 ml/min/1.73 sqM); Sodium 139 mmol/L (137-145)
[2025-01-05] MEDS ORDERED: HEPARIN SODIUM,PORCINE (1 ML) 2,500 UNIT in SODIUM CHLORIDE 0.9% 250 ML IRRIGATION PRN (07:00)
[2025-01-05] MEDS ORDERED: HEPARIN SODIUM,PORCINE 10,000 UNIT in SODIUM CHLORIDE 0.9% 1,000 ML IRRIGATION PRN (07:00)
[2025-01-05] MEDS: HEPARIN SODIUM,PORCINE (1 ML) 2,500 UNIT in SODIUM CHLORIDE 0.9% 250 ML IRRIGATION ONE (07:33)
[2025-01-05] MEDS: HEPARIN SODIUM (1,000 UNIT/ML) 1,000 UNIT in SODIUM CHLORIDE 0.9% 1,000 ML IRRIGATION ONE (07:33)
[2025-01-05] MEDS: fentaNYL (PF) 50 MCG/ML 2 ML AMP IVP ONE (07:41)
[2025-01-05] MEDS: LIDOCAINE 1% INJ 10MG/ML (20 ML MDV) SQ ONE (07:47)
[2025-01-05] MEDS: VERAPAMIL SYRINGE (5 MG/10 ML) INTRAARTER ONE (07:48)
[2025-01-05] MEDS: HEPARIN SODIUM 1,000 UN/ML (10ML VL) IV ONE (07:51)
[2025-01-05] MEDS: IOPAMIDOL-370 100ML BTL INJ ONE (07:57)
[2025-01-05] MEDS: SODIUM CHLORIDE 0.9% 1,000 ML IV SCH (08:10)
[2025-01-05] MEDS ORDERED: RX INFO: IV CONTRAST WAS GIVEN 1 EACH MISC MISCELLANE PRN (08:13)
--- NOTE | 2025-01-05 08:19 | P.CARDCATH ---
Date of Procedure: 01/05/25 Description of Procedure: Cardiac Catheterization: The patient is a 69-year-old female with known history of coronary disease, hypertension and hyperlipidemia who has been complaining of chest discomfort and had an abnormal MPI. Recommendations were made regarding cardiac catheterization, the risks and the complications were discussed with the patient who is in full understanding and agreement. Procedure Description: Patient was brought to lab scientist in fasting semi-sedated state after receiving Fentanyl and Benadryl achieiving moderate conscious sedated state. Using Xylocaine Anesthesia and modified Seldinger technique, a 6-Malagasy sheath was introduced in the right radial artery . Subsequently, selective coronary angiography was performed using a 5-Malagasy 3.5 bend Miranda catheter. Multiple views of the coronary artery including hemiaxial views were obtained. The right Miranda catheter was used to cross the aortic valve and LVEDP was calculated. Following that, catheter and sheath were removed. Hemostasis was obtained with deployment of vascular band . There was no immediate complication. Patient was returned to room in stable condition. Of note, the patient received a total of 3500 units of intravenous heparin as well as intra-arterial verapamil. Findings: Left main: This is a large size vessel, bifurcating into LAD and left circumflex, left main has no obstructive disease LAD: This is a large size vessel, reaching to the apex, giving rise to 2 diagonal branch of moderate caliber. The stented segment in the mid LAD is patent with no evidence of significant in-stent restenosis. There is a 20 to 30% plaque proximal to the stent. The rest of the vessel has no high-grade st enosis. Left circumflex: This is a nondominant vessel, giving rise to a very proximal large obtuse marginal branch, the second obtuse marginal branch is small in caliber. The left circumflex and its branches have no obstructive disease. RCA: This is a large dominant vessel, bifurcating into PDA and PLV. The mid RCA is mildly ectatic. There is a small second acute marginal branch that is totally occluded with slow filling, the rest of the vessel has no high-grade stenosis Left Ventriculogram: Not performed Hemodynamics: There was no gradient across aortic valve, LVEDP was 14-16 mmHg Conclusion: 1. Patent stent in the mid LAD 2. Occluded second small acute marginal branch 3. Mild disease in the RCA 4. Right dominance Recommendations: I see no evidence of significant obstructive disease, I have recommended to continue medical therapy with the aggressive coronary risks modification has been initiated. The findings and the recommendations were discussed with the patient and the family and they were in full understanding and agreement. Duration of sedation is 15 minutes.
[2025-01-05 12:47] VITALS: PULSE 56
[2025-01-05 12:49] VITALS: BP 137/76
[2025-01-05] MEDS ORDERED: METOPROLOL TARTRATE 50 MG TAB PO SCH (21:00)
[2025-01-05] MEDS ORDERED: ATORVASTATIN 40 MG TAB PO SCH (21:00)
[2025-01-06] MEDS ORDERED: LEVOTHYROXINE 75 MCG TAB PO SCH (06:30)
[2025-01-06] MEDS ORDERED: PANTOPRAZOLE 40 MG TABLET PO SCH (09:00)
[2025-01-06] MEDS ORDERED: EZETIMIBE 10 MG TAB PO SCH (09:00)
[2025-01-06] MEDS ORDERED: lisinopriL 10 MG TAB PO SCH (09:00)
[2025-01-06] MEDS ORDERED: ASPIRIN 81 MG PO SCH (09:00)
== END 2025-01-05 12:25 | disposition home or self-care (01) ==
LOC: CATHCVL 05:43
PROVIDERS: ATTEND Internal Medicine Interventional Cardiology
DX: R94.39 Abnormal result of other cardiovascular function study (principal); I25.10 Atherosclerotic heart disease of native coronary artery without angina pectoris; I25.82 Chronic total occlusion of coronary artery; I25.2 Old myocardial infarction; Z95.5 Presence of coronary angioplasty implant and graft; I10 Essential (primary) hypertension; I25.5 Ischemic cardiomyopathy; E78.2 Mixed hyperlipidemia; I08.1 Rheumatic disorders of both mitral and tricuspid valves; Z79.890 Hormone replacement therapy; Z79.82 Long term (current) use of aspirin; Z79.51 Long term (current) use of inhaled steroids; Z79.899 Other long term (current) drug therapy; Z82.49 Family history of ischemic heart disease and other diseases of the circulatory system
CPT/HCPCS: 93458; 80048; 85025; C1894; C1769; J1644 ×2; J2003; J3010; Q9967